=== PATIENT | female | born 1985 | race Caucasian/White ===

== ENCOUNTER 2018-02-18 19:59 | Emergency (ER) | payer OTHER ==
[~2018-02-18] VITALS: Ht 157.4 cm; Wt 70.3 kg
[2018-02-18 21:17] LABS: BASO # 0.1 10*3/uL (0.0-0.1); BASO % 0.4 % (0.0-1.0); EOS # 0.2 10*3/uL (0.0-0.4); EOS % 1.7 % (1.0-4.0); HEMATOCRIT 42.4 % (37.0-47.0); HEMOGLOBIN 14.4 g/dl (12.0-16.0); LYMPH # 3.1 10*3/uL (1.3-4.4); LYMPH % 23.8 % (27.0-41.0); MEAN CELL VOLUME 95.1 fl (81.0-99.0); MEAN CORPUSCULAR HGB 32.3 pg (27.0-31.0); MEAN PLATELET VOLUME 10.6 fl (9.6-12.3); MONO # 0.9 10*3/uL (0.1-1.0); MONO % 7.1 % (3.0-9.0); NEUT # 8.7 10*3/uL (2.3-7.9); NEUT % 66.6 % (47.0-73.0); PLATELET COUNT AUTOMATED 328 10*3/uL (130-400); RED BLOOD COUNT 4.46 10*6/uL (4.10-5.10); RED CELL DISTRI WIDTH 12.3 % (0-14.5); WHITE BLOOD COUNT 13.1 10*3/uL (4.8-10.8)
[2018-02-18 21:28] LABS: BILIRUBIN NEGATIVE (NEGATIVE); BLOOD NEGATIVE (NEGATIVE); CLARITY CLEAR (CLEAR); COLOR YELLOW (YELLOW); GLUCOSE NEGATIVE (NEGATIVE); KETONE NEGATIVE (NEGATIVE); LEUKO ESTERASE NEGATIVE (NEGATIVE); NITRITE NEGATIVE (NEGATIVE); PH 6.5 (5.0-9.0); SPECIFIC GRAVITY 1.015 (1.005-1.030); UROBILINOGEN 0.2 E.U./dl (0.2-1.0)
[2018-02-18 21:41] LABS: ALBUMIN 4.1 gm/dl (3.1-4.5); BUN 14 mg/dl (7-24); CHLORIDE 103 mmol/L (98-107); CREATININE 0.74 mg/dL (0.55-1.02); SGOT/AST 23 IU/L (3-35); SGPT/ALT 33 U/L (12-78); SODIUM 139 mmol/L (136-145); TOTAL PROTEIN 8.1 gm/dL (6.4-8.2)
[2018-02-18 21:45] LABS: EPITHELIAL CELLS 25-30
[2018-02-18 21:46] LABS: BACTERIA TRACE
[2018-02-18 21:51] LABS: ALKALINE PHOSPHATASE 82 U/L (45-117)
[2018-02-18] MEDS ORDERED: ZITHROMAX250 MG PO (23:05)
== END 2018-02-18 23:40 | disposition home or self-care (01) ==
LOC: ED 19:59
PROVIDERS: Nurse Practitioner
DX: J02.9 Acute pharyngitis, unspecified (principal)

== ENCOUNTER → 2020-02-05 | Outpatient (CLI) | payer OTHER ==
[~2020-02-05] MED LIST: ZITHROMAX250 MG PO
== END | disposition home or self-care (01) ==
LOC: US 14:46
DX: N93.9 Abnormal uterine and vaginal bleeding, unspecified (principal)